=== PATIENT | male | born 1995 | race Hispanic/Latino ===

== ENCOUNTER → 2018-02-04 | Day surgery (SDC) | payer OTHER ==
[~2018-02-04] MED LIST: DEXAMETHASONE SOD PHOS INJ 4 MG/ML VIAL ONE; EPHEDRINE SULFATE INJ 50 MG/10 ML SYR ONE; FENTANYL CITRATE/PF 100MCG/2 ML INJ ONE; IOPAMIDOL 610MG/1ML 300 MG/ML VIAL IV ONE; LEVOFLOXACIN 500MG/D5W 100ML 100 ML IV ONE; LIDOCAINE HCL 2% LOCAL INJ 5 ML SDV VIAL INJ ONE; MIDAZOLAM HCL 2 MG/2 ML VIAL ONE; ONDANSETRON HCL INJ 2 MG/ML VIAL ONE; PROPOFOL IV EMULSION 10 MG/ML 20 ML VIAL ONE; SEVOFLURANE INHAL SOLN 250 ML PEN BTL ONE; SYNTHROID100 MCG PO; ULTRAM 50MG50 MG PO
--- OUTSIDE RECORDS SUMMARY | 2018-02-04 05:50 | XMS REPORT | Clinical Summary ---
Author Author [facility] Organization [facility] Address Unknown Phone Unavailable Care Team Providers Care Continuous Pickling Line Pickler Name Role Phone Alex Cope MD PCP Allergies Not on File Current Medications Not on file Active Problems Not on file Encounters Date Type Specialty Care Team Description 11/13/2017 Hospital Radiology Leo Martinez, Uric acid nephrolithiasis Encounter 11/13/2017 Transcribe Radiology Leo Martinez Uric acid nephrolithiasis Orders (Primary Dx) 11/07/2017 Transcribe Access Alex Cope MD Kidney stone (Primary Orders Dx); Low back pain, unspecified back pain laterality, unspecified chronicity, with sciatica presence unspecified after 02/03/2017 Social History Tobacco Use Types Packs/Day Years Used Date Never Assessed Sex Assigned at Date Recorded Not on file Last Filed Vital Signs Not on file Plan of Treatment Health Maintenance Due Date Last Done Comments INFLUENZA VACCINE 10/29/2017 Procedures Procedure Name Priority Date/Time Associated Diagnosis Comments XR ABDOMEN 1 VW Routine 11/13/2017 Uric acid nephrolithiasis Results for this 9:42 AM CDT procedure are in the results section. after 02/03/2017 Results * XR Abdomen 1 Vw (11/13/2017 9:42 AM) Narrative Performed At EXAMINATION:XR ABDOMEN 1 VW [facility]IANT CLINICAL HISTORY:N20.0 Calculus of kidney, n20.0 COMPARISON:05/08/2004 IMPRESSION: 1. No evidence for radiopaque for urinary calculi. 2. Bowel gas pattern is nonobstructive.No evidence for pneumatosis or pneumoperitoneum. 3. Partially visualized IM nail of left intertrochanteric screw fixation of the left proximal femur, and IM nail of proximal right femur. No evidence of hardware failure or loosening. [facility]-[id number] Procedure Note Interface, Radiology Results Incoming - 11/13/2017 10:07 AM CDT EXAMINATION: XR ABDOMEN 1 VW CLINICAL HISTORY: N20.0 Calculus of kidney, n20.0 COMPARISON: 05/08/2004 IMPRESSION: 1. No evidence for radiopaque for urinary calculi. 2. Bowel gas pattern is nonobstructive. No evidence for pneumatosis or pneumoperitoneum. 3. Partially visualized IM nail of left intertrochanteric screw fixation of the left proximal femur, and IM nail of proximal right femur. No evidence of hardware failure or loosening. [facility]-[id number] Performing Organization Address City/State/Zipcode Phone Number [facility] [id number] [place] [address] after 02/03/2017 Insurance Payer Benefit Subscriber ID Type Phone Address Plan / Group AETNA AETNA xxxxxxxxxx HMO HMO,POS,EP O, [place] [address]
[2018-02-04 09:45] VITALS: BP 128/85
--- NOTE | 2018-02-04 13:51 | Operative Report ---
DATE OF PROCEDURE: February 04, 2018 PREOPERATIVE DIAGNOSES 1. History of recurrent prostatitis. 2. Hematuria. POSTOPERATIVE DIAGNOSES 1. History of recurrent prostatitis. 2. Hematuria. 3. Urethral meatal stenosis. OPERATIONS PERFORMED 1. Urethral dilation. 2. Cystourethroscopy with bilateral retrograde pyelograms. MOLDER OFFBEARER: Dr. Christianson. ANESTHETIC: General. Mr. Byrd is a 22-year-old male who presented with a history of recurrent prostatitis with recurrent pain and discomfort. He was also noted to have hematuria. This patient was placed on the table in the lithotomy position and was prepped and draped in a sterile manner after satisfactory anesthesia. A number 22.5 cystoscope was used but could not be passed through the urethral meatus because of a very tight urethral meatus. The urethra was dilated with the [place] sound up to number 24 Occitan with ease. A number 22-Occitan cystoscope was used, and cystourethroscopy was performed and it was noted that the urethra was normal. The prostatic urethra was about 2 cm long, bilobar, nonocclusive but very congested and bleeding to touch. Cystoscopy was then performed using both the right-angle and the Foroblique lens, and it was noted that the bladder mucosa was normal with no evidence of gross tumor, pathology or any papillary lesions. Both ureteral orifices were seen and were within normal position, configuration and efflux. Right retrograde pyelogram was performed using a number 8 bulb-tipped ureteral catheter inserted at the right ureteral orifice, and 5 mL of contrast material was injected. The retrograde performed was normal. Left retrograde pyelogram was performed similarly and was normal. The bladder was drained, cystoscope removed, and patient taken to the recovery room in satisfactory condition. Plans for this patient are to be placed on Cipro 250 mg 1 twice a day for 2 weeks. Ultracet tablet which he is already on. He is to return to the office in about 1 month. Job#: [id number]
== END | disposition home or self-care (01) ==
LOC: OR 05:47
PROVIDERS: ATTEND Specialist
DX: N35.911 Unspecified urethral stricture, male, meatal (principal); N42.1 Congestion and hemorrhage of prostate; E03.9 Hypothyroidism, unspecified; F17.210 Nicotine dependence, cigarettes, uncomplicated; Z88.6 Allergy status to analgesic agent; Z88.0 Allergy status to penicillin; Z91.041 Radiographic dye allergy status
CPT/HCPCS: 52281; 74420; 93005; C1758; J1100; J1956; J2001; J2250; J2405; J2704; Q9967